=== PATIENT | male | born 1965 | race Caucasian/White ===

== ENCOUNTER → 2016-07-06 | Outpatient (CLI) | payer BC ==
[~2016-07-06] MED LIST: AMLO5TAB2 PO; CHOL20002 PO; COLC0.6T37 PO; ESCI10TA PO; FLUT10SP NAS; GLUC-88 PO; IRBE300T16 PO; MONT10TA9 PO; MULT-516 PO
== END | disposition home or self-care (01) ==
LOC: CFH 09:53
PROVIDERS: ATTEND Nurse Practitioner
DX: R94.5 Abnormal results of liver function studies (principal)
CPT/HCPCS: 76700